=== PATIENT | female | born 1975 | race Two or more races ===

== ENCOUNTER → 2020-06-27 06:49 | Outpatient (BNVA) | payer OTHER, SELFPAY | PROVIDERS: PCP Internal Medicine; Referring Provider Internal Medicine; Visit Provider Surgery | DX: Z76.89 Persons encountering health services in other specified circumstances (principal) ==

== ENCOUNTER → 2020-06-28 08:13 | Outpatient (BNVA) | payer OTHER, SELFPAY | PROVIDERS: PCP Internal Medicine; Referring Provider Internal Medicine; Visit Provider Surgery | DX: Z76.89 Persons encountering health services in other specified circumstances (principal) ==

== ENCOUNTER → 2020-06-30 14:01 | Outpatient (BNVA) | payer OTHER, SELFPAY | PROVIDERS: PCP Internal Medicine; Visit Provider Dietitian, Registered | DX: Z76.89 Persons encountering health services in other specified circumstances (principal) ==

== ENCOUNTER → 2020-07-19 13:35 | Outpatient (BNVA) | payer OTHER, SELFPAY | PROVIDERS: PCP Internal Medicine; Visit Provider Surgery | DX: Z76.89 Persons encountering health services in other specified circumstances (principal) ==

== ENCOUNTER → 2020-07-20 13:09 | Outpatient (BNVA) | payer OTHER, SELFPAY | PROVIDERS: PCP Internal Medicine; Visit Provider Dietitian, Registered | DX: Z76.89 Persons encountering health services in other specified circumstances (principal) ==

== ENCOUNTER → 2020-07-31 08:57 | Outpatient (BNVA) | payer OTHER, SELFPAY | PROVIDERS: PCP Internal Medicine; Visit Provider Surgery | DX: Z76.89 Persons encountering health services in other specified circumstances (principal) ==

== ENCOUNTER → 2020-08-01 14:58 | Outpatient (BNVA) | payer OTHER, SELFPAY | PROVIDERS: Visit Provider Physician Assistant | DX: Z76.89 Persons encountering health services in other specified circumstances (principal) ==

== ENCOUNTER → 2020-09-20 08:35 | Outpatient (BNVA) | payer OTHER, SELFPAY | PROVIDERS: PCP Internal Medicine; Visit Provider Surgery | DX: Z76.89 Persons encountering health services in other specified circumstances (principal) ==

== ENCOUNTER 2020-09-29 13:37 | Outpatient (REF) | payer OTHER, SELFPAY ==
[2020-09-29 14:45] LABS: MANUAL DIFF FLAG NO
[2020-09-29 14:51] LABS: Basophils Percent Auto 0.3 % (0-2); Eosinophils Percent Auto 0.6 % (0-4); Hematocrit 38.6 % (37-47); Hemoglobin 12.2 g/dl (12.0-16.0); Imm Gran Abs Auto 0.03 X10*3/uL (0.00-0.03); Imm Gran Pct Auto 0.5 % (0.0-0.4); Lymphocytes Absolute Auto 1.7 X10*3/uL (1.2-4.9); Lymphocytes Percent Auto 26.6 % (20-40); Mean Corpuscular HGB Conc 31.6 g/dl (31.0-35.0); Mean Corpuscular Hemoglobin 26.7 pg (27.0-33.0); Mean Corpuscular Volume 84.5 fL (80-98); Mean Platelet Volume 9.6 fL (9.4-12.3); Monocytes Absolute Auto 0.4 X10*3/uL (0.1-1.2); Monocytes Percent Auto 5.5 % (2-11); Neutrophils Absolute Auto 4.2 X10*3/uL (2.0-8.3); Neutrophils Percent Auto 66.5 % (45-73); Platelet Count 288 X10*3/uL (160-400); Red Blood Count 4.57 X10*6/uL (4.20-5.50); Red Cell Distribution Width 12.9 % (11.0-16.0); White Blood Count 6.3 X10*3/uL (4.8-10.8)
[2020-09-29 14:53] LABS: INTERNATIONAL NORM RATIO 1.1 (0.9-1.1); Prothrombin Time 12.6 SEC (10.8-13.0)
[2020-09-29 14:56] LABS: Partial Thromboplastin Time 35.3 SEC (24.1-38.0)
[2020-09-29 15:03] LABS: Estimated Average Glucose 103 mg/dL; Hemoglobin A1c % 5.2 %
[2020-09-29 15:05] LABS: Alanine Aminotransferase 13 U/L (0-31); Albumin Level 4.3 g/dL (3.5-5.0); Alkaline Phosphatase 60 U/L (39-117); Anion Gap 11 (12-20); Aspartate Amino Transferase 16 U/L (5-31); Bilirubin Total 0.2 mg/dL (0.0-1.0); Blood Urea Nitrogen 14 mg/dL (9-16); C Reactive Protein 0.31 mg/dL (< or = 0.50); Calcium 9.2 mg/dL (8.4-10.2); Carbon Dioxide 28 mmol/L (22-29); Chloride 106 mmol/L (96-108); Cholesterol 209 mg/dL; Estimated Glomerular Filt Rate > 60; Glucose Random 90 mg/dL (60-115); HDL Cholesterol 66 mg/dL; LDL Cholesterol Calculated 126 mg/dl; Potassium 4.6 mmol/l (3.3-5.1); Sodium 140 mmol/L (135-145); Total Protein 6.7 g/dL (6.5-8.0); Triglycerides 89 mg/dL
[2020-09-29 15:25] LABS: TSH reflex Free T4 0.67 mIU/mL (0.32-4.0)
--- NOTE | 2020-09-29 15:30 | ECG_ITS ---
Test Reason : PRE-OP Blood Pressure : / mmHG Vent. Rate : 063 BPM Atrial Rate : 063 BPM P-R Int : 138 ms QRS Dur : 076 ms QT Int : 430 ms P-R-T Axes : 060 014 065 degrees QTc Int : 440 ms Normal sinus rhythm with sinus arrhythmia Low voltage QRS Borderline ECG No previous ECGs available Referred By: Nikhil Steel Electronically Signed By:Jordy Sol
--- NOTE | 2020-09-29 15:42 | XR_ITS ---
EXAMINATION: XR CHEST CLINICAL INFORMATION: Gastroesophageal reflux disease COMPARISON: None TECHNIQUE: 2 views of the chest were obtained. FINDINGS: The cardiac and mediastinal contours are normal. The lungs are clear. There is no pleural effusion or pneumothorax. There are degenerative changes of the spine. XR/XR chest 2V IMPRESSION: No evidence for acute disease in the chest.
== END 2020-09-29 13:38 | disposition home or self-care (01) ==
LOC: HO.LAB 13:37
PROVIDERS: PCP Internal Medicine; Visit Provider Surgery
DX: Z01.818 Encounter for other preprocedural examination (principal); E66.9 Obesity, unspecified; Z68.37 Body mass index [BMI] 37.0-37.9, adult; K21.9 Gastro-esophageal reflux disease without esophagitis; I10 Essential (primary) hypertension; G47.30 Sleep apnea, unspecified; K74.00 Hepatic fibrosis, unspecified
CPT/HCPCS: 36415; 71046; 80053; 80061; 83036; 83525; 84443; 85025; 85610; 85730; 86140; 93005

== ENCOUNTER 2020-10-19 06:55 | Inpatient (IN) | payer OTHER, SELFPAY ==
[2020-09-29 09:10] VITALS: BMI 37.3
--- NOTE | 2020-10-18 09:37 | HO.ANESPROP2 ---
Documented by User: Linda Gomez 10/18/20 09:46 HPI - Anesthesia Eval Consult details Narrative: 44yo F for Gastric Sleeve to Bypass Conversion h/o uvulectomy s/p gastric sleeve 2016 [facility] Past Medical History Medical History ADHD GERD (gastroesophageal reflux disease) History of depression Hypertension Obesity Sleep apnea Steatosis, liver Family History Family History Father HTN (hypertension) DM (diabetes mellitus) Mother Breast cancer HTN (hypertension) DM (diabetes mellitus) Brother No problems noted. Son No problems noted. Son No problems noted. Daughter No problems noted. Surgical History Surgical History H/O partial adrenalectomy H/O uvulectomy History of esophagogastroduodenoscopy (EGD) History of sleeve gastrectomy Hx laparoscopic cholecystectomy Hx of section Hx of tonsillectomy Social History Social History Are you a primary primary care coordinator to a significant other at home: No Do you presently have visiting nurse or other home services: No Alcohol intake: never Smoking Status: Never smoker Second Hand Smoke Exposure: No Use of substances other than those prescribed or required for medical reasons: No Have you been hit, kicked, punched, or otherwise hurt by someone within the past year? If so, by whom?: No Advance Directives: No Advance Directives Information Provided: No Advance Directives on File: No Recently lost weight without trying: No Meds Allergies Allergy/AdvReac Type Severity Reaction Status Date / Time No Known Allergies Allergy Verified 10/19/20 06:21 Home Medications Medication Instructions Recorded Confirmed Type citalopram 40 mg tablet 40 mg PO DAILY 07/19/20 09/29/20 History dextroamphetamine-amphetamine 20 20 mg PO TID 07/19/20 09/29/20 History mg tablet esomeprazole magnesium [Nexium 1 tab PO QAM 08/10/20 09/29/20 History 24HR] trazodone 1 - 2 tab PO BEDTIME PRN 08/10/20 09/29/20 History lorazepam 0.5 mg tablet 0.5 mg PO BEDTIME PRN 09/20/20 09/29/20 History Exam Exam Date and Time: October 18, 2020 0937 Height,Weight and Vital Signs: Height 5 ft 3 in Weight 95.708 kg Pertinent Lab Results Pertinent Lab Results: Laboratory Tests 09/29/20 13:41 Blood Type O Positive Antibody Screen POSITIVE Antibody Identification Anti-S Laboratory Tests 09/29/20 09/29/20 09/29/20 13:50 13:50 13:50 WBC 6.3 Hgb 12.2 Hct 38.6 Plt Count 288 PT 12.6 INR 1.1 APTT 35.3 Sodium 140 Potassium 4.6 Chloride 106 Carbon Dioxide 28 BUN 14 Creatinine 0.74 Hemoglobin A1c % Total Bilirubin 0.2 AST 16 ALT 13 Alkaline Phosphatase 60 C-Reactive Protein 0.31 Total Protein 6.7 Albumin 4.3 TSH 0.67 09/29/20 13:50 WBC Hgb Hct Plt Count PT INR APTT Sodium Potassium Chloride Carbon Dioxide BUN Creatinine Hemoglobin A1c % 5.2 Total Bilirubin AST ALT Alkaline Phosphatase C-Reactive Protein Total Protein Albumin TSH Narrative Narrative: EKG 09/29/20 Normal sinus rhythm with sinus arrhythmia Low voltage QRS Borderline ECG No previous ECGs available ECHO 03/2020 Nml study CXR 09/29/20 XR chest 2V IMPRESSION: No evidence for acute disease in the chest. Assessment and Plan Assessment Anesthesia Assessment: Chart Reviewed Documented by User: Lv Murphy 10/19/20 09:47 [facility] Past Medical History Medical History ADHD GERD (gastroesophageal reflux disease) History of depression Hypertension Obesity Sleep apnea Steatosis, liver Family History Family History Father HTN (hypertension) DM (diabetes mellitus) Mother Breast cancer HTN (hypertension) DM (diabetes mellitus) Brother No problems noted. Son No problems noted. Son No problems noted. Daughter No problems noted. Surgical History Surgical History H/O partial adrenalectomy H/O uvulectomy History of esophagogastroduodenoscopy (EGD) History of sleeve gastrectomy Hx laparoscopic cholecystectomy Hx of section Hx of tonsillectomy Social History Social History Are you a primary primary care coordinator to a significant other at home: No Do you presently have visiting nurse or other home services: No Alcohol intake: never Smoking Status: Never smoker Second Hand Smoke Exposure: No Use of substances other than those prescribed or required for medical reasons: No Have you been hit, kicked, punched, or otherwise hurt by someone within the past year? If so, by whom?: No Advance Directives: No Advance Directives Information Provided: No Advance Directives on File: No Recently lost weight without trying: No Meds Allergies Allergy/AdvReac Type Severity Reaction Status Date / Time No Known Allergies Allergy Verified 10/19/20 06:21 Home Medications Medication Instructions Recorded Confirmed Type citalopram 40 mg tablet 40 mg PO DAILY 07/19/20 09/29/20 History dextroamphetamine-amphetamine 20 20 mg PO TID 07/19/20 09/29/20 History mg tablet esomeprazole magnesium [Nexium 1 tab PO QAM 08/10/20 09/29/20 History 24HR] trazodone 1 - 2 tab PO BEDTIME PRN 08/10/20 09/29/20 History lorazepam 0.5 mg tablet 0.5 mg PO BEDTIME PRN 09/20/20 09/29/20 History Exam Airway Mallampati Class: II TM Dist: >3cm Neck ROM: Full Loose/Missing/Broken Teeth: No Heart: [id number] Lungs: Cta b/l Assessment and Plan Assessment Anesthesia Assessment: Anesthesia Plan Discussed, PAT Visit and Chart Reviewed Final Anesthetic Review NPO: Yes ASA Class: II Final Preanesthetic Review: No Changes in Pt Med Stat, Meds/Allgs Chart Reviewed, Consent Obtained/Reviewed and Anes Risks/Benef Reviewed Patient Risk: Low Procedure Risk: Low Assessment/Block/Sedation in SS: Assess/Block/Sedation-SS Anesthetic Plan Anesthetic Plan: GA and Agree w/ Assess. and Plan Disposition: Standard PACU
--- NOTE | 2020-10-18 20:42 | MHC.SHP ---
Pre-Procedural Eval Section A The patient is an INPATIENT: Yes The History & Physical has been completed within 30 days and I have reviewed it.: Yes Section B Chief Complaint: obesity Details of Present Illness: Obesity Relevant Family History (Specify if Yes): No Relevant Social History: None Present Medications: see Short Stay Collaborative assessment Medical History: No relevant PMH History of Previous Operations: Relevant previous surgery/procedure and date(s) (Sleeve gastrectomy) Allergies: Allergies Allergy/AdvReac Type Severity Reaction Status Date / Time No Known Allergies Allergy Unverified 09/28/20 10:38 Review of Systems Sugical H&P ROS: Negative: Constitution, Cardiovascular, Respiratory, Neurological, Psychiatric, Hem-Onc, Allergic/Immunologic, Gastrointestinal, Genitourinary, Musculoskeletal, Integumentary, Endocrine and Eyes/Ears/Nose/Throat Exam Surgical H&P Exam: Normal: HEENT, Normal: Heart, Normal: Lungs, Normal: Extremities, Normal: Abdomen, Normal: Skin and Normal: Neurological Plan Diagnosis/Plan: Unchanged I have reviewed the history and physical and performed a pertinent physical examination on my patient. No changes have occurred unless specified.
[2020-10-19] VITALS (11 sets, daily range): BP systolic 111–168; BP diastolic 78–99; PULSE 64–89; RESP 16–20; TEMP 36.4–37.1; O2SAT 97–100
[2020-10-19 06:50] LABS: UPreg QC Valid YES; Urine Pregnancy NEGATIVE (NEGATIVE)
[2020-10-19] MEDS: Lactated Ringers 1,000 ML 999 ML IVCONT (06:51)
[2020-10-19 06:56] LABS: COVID-19 Test Negative (Negative); IDNOW Serial# 9DD0AD1C
[2020-10-19] MEDS: ceFAZolin Sodium/Dextrose,Iso 2 GM/50 ML PIGGYBACK IV ×2 (07:09→14:01)
--- NOTE | 2020-10-19 13:17 | P.BOP_ITS ---
Brief Operative Note Date of Service: 10/19/20 Pre-op diagnosis: Severe obesity and comorbidities (see below) Post-op diagnosis: same (diaphragmatic hernia and adhesions) Procedure: INITIAL PATIENT BMI ON PRESENTATION AT OUR OFFICE: 40.85 Kg/m2 LAST BMI BEFORE SURGERY: 37.5 kg/m2 COMORBIDITIES: sleep apnea, severe GERD, hypertension, depression, diaphragmatic hernia, intra-abdominal adhesions, depression, ADHD, hyperlipidemia, back pain, liver steatosis, liver fibrosis The patient participated in an intensive weekly lifestyle intervention and exercise program during which the patient has lost between the initial office visit and the last preoperative visit 26lbs, or 10.92% of initial actual body weight. The patient met the BMI-criteria for bariatric surgery based on the BMI on initial presentation. The patient should not be penalized for achieving such weight loss because it is not sustainable long-term without surgical intervention and it was achieved in preparation for bariatric surgery under my direction and based on my published research ([email or web address] and [email or web address]/article/[email or web address]-[email or web address]/pdf) that a 10% preoperative weight loss improves long-term weight loss after surgery and reduces perioperative complications. Insurance carriers such as [facility] have endorsed my recommendations and have included in their policies criteria to include a 10% preoperative weight loss requirement. PROCEDURE: [id number], laparoscopic repair of incarcerated diaphragmatic hernia, extensive laparoscopic lysis of adhesions and laparoscopic Desean-en-Y gastric bypass with a Desean limb of 160cm INDICATIONS: This is a 44 year-old female with a BMI of 40.8 kg/m2, history of failed sleeve gastrectomy and associated comorbid conditions as described p reviously. After appropriate workup and a 26 lbs preoperative weight loss was performed, the patient was electively scheduled for laparoscopic, possibly open sleeve gastrectomy of the gastric pouch. The risks and complications of the procedure were discussed with the patient in advance, particularly the possibility of ; pulmonary embolism; staple line leak; bleeding; GERD; cardiac, pulmonary, or renal complications; as well as long-term problems such as insufficient weight loss, vitamin deficiency, strictures, or ulcers. The patient understood all the risks, and was in agreement to proceed with surgery. DESCRIPTION OF PROCEDURE: After informed consent was obtained from the patient, the patient was given preoperative antibiotics, and was transferred to the operating room. After successful induction of general anesthesia, a Echeverria catheter and pneumatic compressive devices were placed on both lower extremities. An upper endoscopy was performed next. The oropharynx and esophagus appeared to be within normal limits. There was a diaphragmatic hernia present of moderate size consistent with the findings of the preoperative upper GI. The stomach was entered. Then after all fluid and air were suctioned and the stomach was fully decompressed, the scope was withdrawn and secured in the mid esophagus. The patient was then prepped and draped in the usual sterile manner, and abdominal access was established at the right upper quadrant with the Cody technique. A 12 mm blunt port was inserted, and the abdomen was insufflated with CO2 to a pressure of 15 mmHg. Under direct visualization, additional ports were placed, specifically two 5 mm Versi-step ports to the left upper quadrant, and a 5 mm Versi-Step port to the right upper quadrant. 1% lidocaine plan was used to infiltrate all port sites as well as all fascia defects. An additional 5 mm and 12 mm Versi-step ports were placed just superior to the umbilicus to the left and the right of it. Following that, the patient was placed in a steep reverse Trendelenburg position. An additional 5 mm port was placed to the right flank for the Mediflex retractor that was used to retract the left lobe of the liver. Some omental fat overlying the sleeve was mobilized and the lesser sac was identified. I continued by dissecting between the gastric sleeve and the greater omentum all the way towards the angle of His. There were some posterior short gastric vessels that were not previously divided. Those were divided with the Thunderbeat. Separation of the gastric pouch from the spleen was difficult because of the severe fibrotic reaction from the use of Peristrips at the previous operation. Nevertheless, those were divided and that allowed exposure to the left edel The gastro-esophageal fat pad was opened with the ultrasonic device (Thunderbeat, Olympus) and the anterior esophagus and hiatus were exposed. The angle of His was opened with the ultrasonic device the fundus of the stomach from any diaphragmatic and splenic attachments. Adhesiolysis took approximately 90 min to complete. Dissection was very difficult and it was very tedious. There was an obvious significant-sized hiatal hernia. I continued dissecting along the hiatus toward the left edel and the angle of His. I fully mobilized the fat pad that was incarcerated in the hernia. I then continued by dissecting even further into the posterior retro-esophageal space all the way to the angle of His. I continued to mobilize the esophagus into the mediastinum circumferentially. Both vagal nerves were seen and preserved. At that point, I was able to have at least 3 to 5 cm of esophagus into the abdomen. After I completely mobilized the esophagus from both the left and right edel and I had a good mobilization of the esophagus circumferentially, I closed the hernia defect with two interrupted #0 Surgidac sutures using the Endo Stitch device, which were both placed posterior to the esophagus. There was no significant redundancy of the stomach laterally and posteriorly. The lesser omentum was divided with the Thunderbeat and the sleeve was transected transversely with one Endo BARBER-60 purple load using the AEON stapler. The staple line of the distal sleeve was reinforced with clips. The patient was then placed in supine position, and after I retracted the transverse colon and the omentum cephalad, we identified the ligament of Treitz. I counted 50 cm from the ligament of Treitz, and the small bowel and the mesentery were divided with an Endo BARBER-60 white load. Using the ultrasonic device, I opened the peritoneum at the root of the mesentery further to gain extra mobility. We then developed the mesocolic window slightly to the left and superior to the ligament of Treitz using the ultrasonic device. The apex of the Desean limb was identified. Following that, we grasped the apex of the Desean limb with an articulating bowel grasper, and after we made sure there was no twisting of the mesentery, it was delivered in a retrocolic, retrogastric fashion through the mesocolic window which we had previously made. Following that, I noted there was no tension between the gastric pouch and the Desean limb. Enterotomies were made at the apex of the pouch and the Desean limb, and the gastro-jejunostomy was made with an Endo BARBER-45 ma load (InnerWorkings) measured to be 4.5 cm in diameter. The enterotomy was closed using the Endo Stitch device in one layer of running 2-0 Polysorb suture in a [place] fashion starting from each corner of the enterotomy and tying the two ends together in the center of the enterotomy. The Desean limb was clamped with a bowel clampapproximately 15 cm from the gastro- jejunostomy, and a leak test was performed by submerging the anastomosis in saline and insufflating air off the scope into the pouch. The hiatal hernia repair was intact, and there was no narrowing of the GE junction. There was no air leak during the test. There was no significant ischemia of the mucosa of the gastric pouch or Desean limb. There was no bleeding from the suture or staple lines of the anastomosis, as well as the staple line of the gastric pouch which was clearly seen in its entirety. In addition, the anastomosis was patent, and we easily advanced the scope into the proximal Desean limb. With the scope pulled back at the esophagus, we reinforced the anastomosis circumferentially with multiple interrupted 2-0 Polysorb sutures in a Lembert type fashion using the Endo Stitch device. At that point, I pulled the endoscope back to the esophagus while we were decompressing the Desean limb and gastric pouch from any remaining air. At that point, the patient was placed in supine position, and after we reduced the Desean limb back into the abdomen, I counted 160 cm from the gastro-jejunostomy. An enterotomy was mad e there with the ultrasonic device. After a similar enterotomy was made at the apex of the bilio-pancreatic limb, the jejuno-jejunostomy was made with an Endo BARBER-60 white load. The enterotomy was closed with another Endo BARBER-60 white load after appropriate alignment with four interrupted 2-0 Surgidac sutures. Two anti-obstruction sutures were placed next between the staple line of the bilio-pancreatic limb and the mesentery of the Desaen limb distal from the anastomosis to prevent kinking of the anastomosis. We then closed the small bowel mesenteric defect in a running fashion using a running 2-0 Surgidac suture using the EndoStitch device. I checked the anastomosis at the end. The jejuno-jejunostomy was patent. The Desean limb was not narrowed. The staple lines were intact, viable, without evidence of any ischemia, bleeding, or any open areas, and the entire anastomosis was sitting nicely without tension, narrowing, or kinking. I then closed the Barton's defect with one interrupted 2-0 Surgidac suture in a U-type fashion and then the mesocolic defect with five interrupted 2-0 Sofsilk sutures in a U- type fashion. The Desean limb was clamped 20 cm inferior to the mesocolic window and another endoscopy was performed. We could easily pass the gastroscope through the gastro-jejunostomy and mesocolic window without any narrowing, kinking, or evidence of bleeding or ischemia. At that point the gastroscope was withdrawn from the patient?s mouth while we were decompressing the bowel and the stomach from any remaining air. I ran back the Desean limb from the mesocolic window to the jejuno-jejunostomy which appeared to be normal without any twisting or kinking. All blood clots were suctioned. I carefully positioned the transverse colon epiploic appendages to the root of the small bowel mesentery to prevent any adhesions between them and the anastomosis that could lead to an internal hernia. I then placed the patient back in a steep reverse Trendelenburg position. I looked into the lesser sac to see how the Desean limb was situating and it was situating well. There was no bleeding from the suture lines of the remnant, angle of His, and gastric pouch, as well as from the mesentery of the Desean limb. At this point I placed a 10 mm ONEAL drain underneath the gastro-jejunostomy and we secured the skin level with an #0 Sofsilk suture. The Mediflex retractor was removed, and the undersurface of the liver was inspected and there was no bleeding. The patient was placed in supine position. I closed the fascial defect of the 12 mm periumbilical port site laparoscopically with the EndoClose suture passer device using #1 Polysorb suture and the Cody port with a figure of eight #1 Polysorb suture. Then 100 cc 0.25 % Marcaine and 1% lidocaine plain were used to infiltrate both fascial closures as well as all skin incisions. At this point, the abdomen was deflated, all ports were removed under direct vision, and no bleeding was noted from any of the port sites. The skin incisions were irrigated with saline and were closed with 4-0 absorbable monofilament sutures. Steri-Strips and OpSites were used to cover all incisions. The patient was extubated and was transferred in stable condition to the recovery room for further care. I was present and performed all patel parts of the procedure. Ms. Snede was the first officer and flight instructor. There were no residents to assist with this case. Mihai Steel MD, PhD, FACS Surgeon: Nikhil Steel MD Anesthesia: GETA, local and other (TAP block) Incendiary Powder Mixer: Talia Sneed Estimated blood loss (mL): 20 IV fluids (mL): 1,800 Urine output (mL): 150 Pathology: none sent Condition: stable Disposition: PACU
--- NOTE | 2020-10-19 13:20 | P.DS_ITS ---
DS: Providers Provider Date of Service: 10/20/20 Date of admission: 10/19/20 06:55 Primary care physician: Caleb Palomares MD DS: Medications Discharge Medications Home Medications: Home Medications Medication Instructions Recorded Confirmed citalopram 40 mg tablet 40 mg PO DAILY 07/19/20 09/29/20 dextroamphetamine-amphetamine 20 20 mg PO TID 07/19/20 09/29/20 mg tablet esomeprazole magnesium [Nexium 1 tab PO QAM 08/10/20 09/29/20 24HR] trazodone 1 - 2 tab PO BEDTIME PRN 08/10/20 09/29/20 lorazepam 0.5 mg tablet 0.5 mg PO BEDTIME PRN 09/20/20 09/29/20 Previous Rx's Medication Instructions Recorded sucralfate 100 mg/mL oral 10 ml PO BID #420 ml 07/31/20 suspension ondansetron HCl 4 mg tablet 4 mg PO Q6H PRN #30 tab 09/28/20 polyethylene glycol 3350 17 gram 17 g PO DAILY #14 ea 09/28/20 oral powder packet DS: Summary Time Spent with Patient Time attestation: ADMITTING DIAGNOSIS: Refractory morbid obesity with a BMI of 37.4 kg/m2 after sleeve gastrectomy and associated co-morbid conditions including GERD, HTN, SHARI, depression and liver steatosis DISCHARGE DIAGNOSIS: same, with repair of hiatal hernia and conversion to zeenat - en -y gasric bypass Past surgical history: laparoscopic sleeve gastrectomy partail adrealectomy, uvulectomy, lap trevin section and tonsillectomy PROCEDURE: Qndnxxiu-pynsxp-ehrorimfrng and conversion from sleeve gastrectomy to laparoscopic Zeenat-en-Y gastric bypass, extensive lysis of adhesions and repair of hiatal hernia DISCHARGE SUMMARY: HISTORY OF PRESENT ILLNESS: The patient is a 44year-old woman with a BMI of 40.85 kg/m2 and associated co- morbidities as described previously. The patient had extensive preoperative work-up, lost 27 lbs preoperatively and was electively scheduled for laparo scopic, possible open conversion of LSG to gastric bypass and repair of hiatla hernia. Risks and complications of the surgery were discussed with the patient in advance, particularly the possibility of , pulmonary embolism, anastomotic leak, bleeding, bowel injury, GERD, cardiac, renal or pulmonary complications. The patient understood all the risks and was in agreement with the surgical plan. HOSPITAL COURSE: The patient underwent uneventful laparoscopic Zeenat-en-Y gastric bypass on the day of admission. Postoperatively, the patient was transferred to the surgical floor on a monitored bed and hemoglobin during the first 8 hours remained stable at 10.6 mg/dl. The patient was on IV Acetaminophen and dilaudid for pain control. On postoperative day one, the patient was feeling well without nausea, vomiting, fevers, or tachycardia. The patient had some mild incisional pain. The abdomen was soft. UGI showed no leak or obstruction. The patient was started on 1 ounce of water or ice every half hour. The Echeverria was discontinued. During the first day, the patient did fairly well, having some incisional pain, but able to ambulate adequately and to tolerate liquids well. Since the patient is doing well, we decided that the patient was ready to be discharged. The patient was given instructions to follow-up with me next week and to call my office for any fever over 101, persistent abdominal pain, nausea, vomiting, change in the color of the ONEAL fluid, symptoms of DVT such as calf tenderness, or leg swelling, or pulmonary embolism such as chest pain or shortness of breath. The patient was also instructed to drink 40-60 ounces of liquids per day using the 1-ounce cups. The patient was given prescription for Tylenol for pain, Zofran prn for nausea, pantoprazole and carafate. The patient was encouraged to ambulate and use the incentive spirometry. The patient was allowed to shower, but no baths, and encouraged to stay active at home. All of these instructions were given to the patient personally. All questions were answered and the patient understood all instructions. The instructions were given to the patient in print as well. Total time spent providing and/or coordinating discharge services: 30 Discharge coordination time: Less than 30 minutes Physical Exam Vital Signs: Vital Signs: Last Vital Signs Temp 98.2 F 10/19/20 13:07 Pulse 84 10/19/20 13:13 Resp 16 10/19/20 13:13 BP 127/88 10/19/20 13:13 Pulse Ox 100 10/19/20 13:13 Body Mass Index 37.3 DS: Data Data Completed and Pending Labs on day of discharge: Laboratory Tests 09/29/20 10/19/20 10/19/20 13:41 06:25 06:25 Urine Test COVID-19 ([facility]) Negative COVID-19 Clin Com See Note Blood Type O Positive O Positive Antibody Screen POSITIVE POSITIVE Antibody Identification Anti-S Anti-S Crossmatch ([facility]) See Detail 10/19/20 06:25 Urine Test NEGATIVE COVID-19 ([facility]) COVID-19 Clin Com Blood Type Antibody Screen Antibody Identification Crossmatch ([facility]G) Discharge Plan Discharge Anticipated Discharge Date/Time: 10/20/20 12:15 Patient Disposition: Home, Self-Care Referrals: Caleb Palomares MD [Primary Care Provider] - Discharge Medications: Continued ondansetron HCl [Zofran] 4 mg tablet 4 mg PO Q6H PRN (Reason: nausea and vomiting) Qty: 30 RF: 0 trazodone 50 mg tablet 1 - 2 tab PO BEDTIME PRN (Reason: Sleep) RF: 0 citalopram [Celexa] 40 mg tablet 40 mg PO DAILY RF: 0 dextroamphetamine-amphetamine [Adderall] 20 mg tablet 20 mg PO TID RF: 0 sucralfate 100 mg/mL suspension 10 ml PO BID Qty: 420 RF: 2 lorazepam [Ativan] 0.5 mg tablet 0.5 mg PO BEDTIME PRN (Reason: Anxiety) RF: 0 Discontinued polyethylene glycol 3350 [Miralax] 17 gram powder in packet 17 g PO DAILY Qty: 14 RF: 0 Nexium 24HR 20 mg tablet,delayed release (DR/EC) 1 tab PO QAM RF: 0 Diet: other Activity on Discharge: No heavy lifting Stand Alone Forms: Patient Portal Discharge page Activity Restrictions/Additional Instructions: No tub baths, sex or returning to work until discussed at first post op appointment. No exercise, alcohol, tobacco or illegal drug use. Continue to use incentive spirometer hourly while awake. Walk in home for 5- 10 minutes every 2 hours during the first week. Continue phase 1 diet today and start phase 2 diet tomorrow morning. Follow all instructions in the bariatric handbook and call with any questions. Visit Report Forms: Patient Portal Discharge page Care Plan Goals: weight loss Health Concerns: obesity Plan of Treatment: see discharge instructions
--- NOTE | 2020-10-19 13:34 | P.PNGS_ITS ---
Subjective Subjective Date of Service: 10/20/20 Interval history: Patient had mild incisional pain. She was able to ambulate and use the incentive spirometer. Physical Exam Vital Signs: Vital Signs: Last Vital Signs Temp 98.2 F 10/19/20 13:07 Pulse 85 10/19/20 13:18 Resp 16 10/19/20 13:18 BP 136/86 10/19/20 13:18 Pulse Ox 100 10/19/20 13:18 Body Mass Index 37.3 GI: Inspection: Yes normal to inspection, Yes incision (dry, clean and intact), Yes obesity and Yes other (ONEAL drain with serosanguinous fluid) Extrem: Right lower extremity: normal to inspection (no calf tenderness) Left lower extremity: normal to inspection (no calf tenderness) Progress Note: A&P Assessment and plan (1) Obesity: Status: Acute (2) GERD (gastroesophageal reflux disease): Status: Acute (3) Hypertension: Status: Acute (4) Sleep apnea: Problem details: Pt states no Longer on CPAP Status: Acute (5) Steatosis, liver: Status: Acute (6) Liver fibrosis: Status: Acute (7) BMI 37.0-37.9, adult: Status: Acute (8) Diaphragmatic hernia: Status: Acute (9) Abdominal adhesions: Status: Acute (10) S/P gastric bypass: Status: Acute Assessment and Plan: 44 year old female was admitted 10/19/2020 with morbid obesity and comorbiditi es. Problem 1: s/p laparoscopic diaphragmatic hernia repair, Desean-en-Y gastric bypass and lysis of adhesions Status: Doing well Plan: Check am labs and UGI. If OK, will start phase 1 bariatric diet and discharge later today. (11) S/P repair of paraesophageal hernia: Status: Acute (12) Depression: Status: Acute (13) Hyperlipidemia: Status: Acute (14) Back pain: Status: Acute (15) Splenic artery aneurysm: Status: Acute Fall Risk Details Current Medications: Current Medications Generic Name Dose Route Start Last Admin Trade Name Freq PRN Reason Stop Dose Admin Famotidine 20 mg 10/19/20 13:33 Famotidine/Pf 20 Mg/2 Ml Vial IVPUSH BID AMANUEL Fentanyl 50 mcg 10/19/20 09:47 Fentanyl Citrate/Pf 100 Mcg/2 Ml Vial IVPUSH Q5M PRN Pain, Moderate (Pain Scale 4-6 Hydromorphone HCl 0.5 mg 10/19/20 09:47 Hydromorphone Hcl 0.5 Mg/0.5 Ml Syringe IVPUSH Q5M PRN Pain, Severe (Pain Scale 7-10) Lactated Ringer's 1,000 mls @ 100 mls/hr 10/19/20 06:15 Lr IVCONT .Q10H AMANUEL Promethazine HCl 12.5 mg/ 50.5 mls @ 202 mls/hr 10/19/20 09:47 Sodium Chloride IV ONCE PRN Nausea and Vomiting Ondansetron HCl 4 mg 10/19/20 09:47 Ondansetron Hcl 4 Mg/2 Ml Vial IVPUSH ONCE PRN Nausea and Vomiting Oxycodone HCl 10 mg 10/19/20 09:47 Oxycodone Hcl Immed Release 5 Mg Tablet PO ONCE PRN Pain, Mild (Pain Scale 1-3) Time Spent With Patient Time: Total time spent is greater than 50% in coordination of care (as documented) at patient's floor/unit and/or counseling patient: Time with patient: less than 15 minutes
[2020-10-19] MEDS: Famotidine/PF 20 MG/2 ML VIAL IVPUSH ×2 (13:36→21:26)
[2020-10-19 13:48] LABS: Hematocrit 39.9 % (37-47); Hemoglobin 12.3 g/dl (12.0-16.0)
[2020-10-19 14:16] LABS: Anion Gap 16 (12-20); Blood Urea Nitrogen 13 mg/dL (9-16); Calcium 8.3 mg/dL (8.4-10.2); Carbon Dioxide 21 mmol/L (22-29); Chloride 109 mmol/L (96-108); Creatinine Clr Calc Pharmacy 99.5; Estimated Glomerular Filt Rate > 60; Glucose Random 134 mg/dL (60-115); Sodium 141 mmol/L (135-145)
[2020-10-19] MEDS: Lactated Ringers 1,000 ML 150 ML IVCONT (15:29)
[2020-10-19] MEDS: 0.9 % Sodium Chloride Flush 3 ML SYRINGE IVFLUSH (21:26)
[2020-10-19] MEDS: 0.9 % Sodium Chloride 1,000 ML 125 ML IVCONT (21:26)
[2020-10-19] MEDS: ondansetron HCL 4 MG/2 ML VIAL IVPUSH (22:42)
[2020-10-20] MEDS: Lactated Ringers 500 ML 999 ML IVCONT (00:58)
[2020-10-20 03:39] VITALS: BP 130/82; PULSE 65; RESP 18; TEMP 36.9; O2SAT 96
[2020-10-20] MEDS: 0.9 % Sodium Chloride 1,000 ML 125 ML IVCONT ×2 (04:24→08:08)
--- NOTE | 2020-10-20 04:27 | PC.NURSE ---
Addendum entered by Ailyn Benedict RN 10/20/20 04:47: Talia ordered 500 cc bolus of NS. bolus given. Original Note: pt's jones output from 3050-2241 was 75 ml of yellow urine, vital signs stable. [employer] message sent to SUSIE Steen. Talia ordered 500 cc bolus of LR. bolus given. pt's jones output about [id number] was 175 ml of yellow urine. [employer] message sent to SUSIE Steen. Talia aware.
[2020-10-20 04:53] LABS: MANUAL DIFF FLAG NO
[2020-10-20 04:57] LABS: Basophils Percent Auto 0.2 % (0-2); Eosinophils Percent Auto 0.2 % (0-4); Hematocrit 33.4 % (37-47); Hemoglobin 10.6 g/dl (12.0-16.0); Imm Gran Abs Auto 0.02 X10*3/uL (0.00-0.03); Imm Gran Pct Auto 0.2 % (0.0-0.4); Lymphocytes Absolute Auto 1.1 X10*3/uL (1.2-4.9); Lymphocytes Percent Auto 12.1 % (20-40); Mean Corpuscular HGB Conc 31.7 g/dl (31.0-35.0); Mean Corpuscular Hemoglobin 26.9 pg (27.0-33.0); Mean Corpuscular Volume 84.8 fL (80-98); Monocytes Absolute Auto 0.6 X10*3/uL (0.1-1.2); Monocytes Percent Auto 7.1 % (2-11); Neutrophils Percent Auto 80.2 % (45-73); Platelet Count 212 X10*3/uL (160-400); Red Blood Count 3.94 X10*6/uL (4.20-5.50); Red Cell Distribution Width 12.7 % (11.0-16.0); White Blood Count 8.8 X10*3/uL (4.8-10.8)
[2020-10-20 05:19] LABS: Anion Gap 14 (12-20); Blood Urea Nitrogen 11 mg/dL (9-16); Calcium 8.3 mg/dL (8.4-10.2); Carbon Dioxide 24 mmol/L (22-29); Chloride 108 mmol/L (96-108); Creatinine Clr Calc Pharmacy 107.5; Estimated Glomerular Filt Rate > 60; Glucose Random 105 mg/dL (60-115); Potassium 4.8 mmol/l (3.3-5.1); Sodium 141 mmol/L (135-145)
[2020-10-20] MEDS: 0.9 % Sodium Chloride 500 ML 999 ML IV (05:24)
[2020-10-20] MEDS: ondansetron HCL 4 MG/2 ML VIAL IVPUSH (06:36)
--- NOTE | 2020-10-20 07:54 | FL_ITS ---
EXAMINATION: UPPER GI CLINICAL INFORMATION: Postop gastric bypass COMPARISON: Preoperative exam February 2020 TECHNIQUE: Upper GI was performed patient in upright position dilute Gastrografin contrast. Fluoroscopy time 0.8 minutes. 48mGy. 16fluoroscopic images and one upright image. FINDINGS: There are postoperative changes from gastric bypass. No evidence for leak or obstruction. There is subsegmental atelectasis at the lung bases.. There is a small amount of free air. There are air-fluid levels seen in the small and large bowel probably representing an ileus. FL/FL upper GI w gastrografin IMPRESSION: No evidence of leak or obstruction. Probable postoperative ileus. Small amount of free air under the right diaphragm.
[2020-10-20 08:00] VITALS: BP 131/73; PULSE 72; RESP 19; TEMP 36.6; O2SAT 97
[2020-10-20] MEDS: Famotidine/PF 20 MG/2 ML VIAL IVPUSH (08:11)
--- NOTE | 2020-10-20 09:24 | HO.POSTANES ---
Post Anesthesia Evaluation Post Anesthesia Evaluation Vital Signs: Vital Signs Temp Pulse Resp BP Pulse Ox 10/20/20 08:00 97.9 F 72 19 131/73 97 10/20/20 03:39 98.4 F 65 18 130/82 96 10/19/20 23:35 98 F 64 18 127/87 97 Anesthesia: General Endotracheal-GETA Mental Status: Awake Pain Control: Satisfactory Nausea/Vomiting: None Hydration: Adequate Anesthesia-Related Issues: No Anes. Related Issues
--- NOTE | 2020-10-20 09:30 | MHC.CM.PN ---
PATIENT IS FULLY INDEPENDENT. NO DME OR [facility] SERVICES. SHE IS DISCHARGED HOME - SELF CARE. RN AWARE OF PLAN
[2020-10-20 09:47] VITALS: O2SAT 98
[2020-10-20 12:00] VITALS: BP 122/70; PULSE 69; RESP 18; TEMP 36.5; O2SAT 98
[2020-10-20] MEDS: ceFAZolin Sodium/Dextrose,Iso 2 GM/50 ML PIGGYBACK IV (13:23)
== END 2020-10-20 15:30 | disposition home or self-care (01) | DRG 403 ==
LOC: HO.SSSA 13:20 → HO.S3 14:11
PROVIDERS: Physician Assistant; Admitting Provider Surgery; PCP Internal Medicine; Visit Provider Surgery
PROC: 0D164ZA Bypass Stomach to Jejunum, Percutaneous Endoscopic Approach (ICD-10-PCS; principal; 2020-10-19 07:30)
DX: E66.01 Morbid (severe) obesity due to excess calories (principal); K74.00 Hepatic fibrosis, unspecified; K44.0 Diaphragmatic hernia with obstruction, without gangrene; E78.5 Hyperlipidemia, unspecified; K76.0 Fatty (change of) liver, not elsewhere classified; F32.9 Major depressive disorder, single episode, unspecified; G47.30 Sleep apnea, unspecified; Z68.41 Body mass index [BMI] 40.0-44.9, adult; K21.9 Gastro-esophageal reflux disease without esophagitis; I10 Essential (primary) hypertension; M54.9 Dorsalgia, unspecified; K66.0 Peritoneal adhesions (postprocedural) (postinfection); Z20.822 Contact with and (suspected) exposure to COVID-19; Z79.899 Other long term (current) drug therapy
CPT/HCPCS: 36415; 74240; 80048; 81025; 85014; 85018; 85025; 86850; 86870; 86885; 86900; 86901; 86902; 86920; 86922; 87635; 99024; C1758; J0131; J0690; J1100; J1170; J2250; J2405; J3010

== ENCOUNTER → 2020-10-25 10:52 | Outpatient (BNVA) | payer OTHER, SELFPAY | PROVIDERS: PCP Internal Medicine; Visit Provider Surgery ==

== ENCOUNTER → 2020-11-22 08:11 | Outpatient (BNVA) | payer OTHER, SELFPAY | PROVIDERS: PCP Internal Medicine; Visit Provider Surgery ==

== ENCOUNTER → 2020-12-15 08:13 | Outpatient (BNVA) | payer OTHER, SELFPAY | PROVIDERS: PCP Internal Medicine; Visit Provider Surgery ==

== ENCOUNTER → 2021-01-10 08:09 | Outpatient (BNVA) | payer OTHER, SELFPAY | PROVIDERS: PCP Internal Medicine; Visit Provider Surgery ==

== ENCOUNTER 2021-12-18 19:48 | Emergency (ER) | payer OTHER, SELFPAY ==
[2021-12-18 20:03] VITALS: BP 138/76; PULSE 75; RESP 18; TEMP 36.5; O2SAT 100; BMI 29.2
[2021-12-18 21:17] VITALS: BP 140/86; PULSE 78; RESP 18; TEMP 36.7; O2SAT 100
[2021-12-18] MEDS: Diphth,Pertus(ACell),Tet Adult 0.5 ML SYRINGE IM (22:09)
[2021-12-18] MEDS: Lidocaine HCl 1 % MPF 5 ML VIAL SUBCUT ×2 (22:09→22:10)
--- NOTE | 2021-12-18 22:17 | ED.WOUNDLAC ---
HPI - Wound/Laceration General Chief Complaint: Wound/Laceration Stated Complaint: needs stitches- cut finger at home Time Seen by Provider: 12/18/21 21:21 History of Present Illness HPI narrative: Patient complains of left index finger laceration from a kitchen knife on our ago at home, no numbness no weakness no tingling no other injury Related Data Home Medications Medication Instructions Recorded Confirmed citalopram 40 mg tablet (Celexa) 40 mg PO DAILY 07/19/20 09/29/20 dextroamphetamine-amphetamine 20 20 mg PO TID 07/19/20 09/29/20 mg tablet (Adderall) trazodone 50 mg tablet 1 - 2 tab PO BEDTIME PRN 08/10/20 09/29/20 lorazepam 0.5 mg tablet (Ativan) 0.5 mg PO BEDTIME PRN 09/20/20 09/29/20 Previous Rx's Medication Instructions Recorded ondansetron HCl 4 mg tablet 4 mg PO Q6H PRN #30 tab 09/28/20 (Zofran) sucralfate 100 mg/mL oral 10 ml PO BID #420 ml 03/20/21 suspension Allergies Allergy/AdvReac Type Severity Reaction Status Date / Time No Known Allergies Allergy Verified 12/18/21 20:03 Review of Systems Review of Systems: Positive for left index finger laceration Negatives are no numbness no weakness no tingling no difficulty moving or bending the finger no difficulty straightening the finger no other injury or complaint Yes all other systems are reviewed and are negative PMFSH Past Medical History Source: nursing notes reviewed Medical History (Updated 12/18/21 @ 22:21 by SUSIE Lazo) ADHD Back pain BMI 37.0-37.9, adult Depression GERD (gastroesophageal reflux disease) History of depression Hyperlipidemia Hypertension Obesity Sleep apnea Splenic artery aneurysm Steatosis, liver Surgical History (Updated 10/19/20 @ 13:37 by Nikhil Steel MD) H/O partial adrenalectomy H/O uvulectomy History of esophagogastroduodenoscopy (EGD) History of sleeve gastrectomy Hx laparoscopic cholecystectomy Hx of section Hx of tonsillectomy Family History Family History Father HTN (hypertension) DM (diabetes mellitus) Mother Breast cancer HTN (hypertension) DM (diabetes mellitus) Brother No problems noted. Son No problems noted. Son No problems noted. Daughter No problems noted. Social History Social History Are you a primary college and career counselor to a significant other at home: No Do you presently have visiting nurse or other home services: No Alcohol intake: never Second Hand Smoke Exposure: No Advance Directives: No Advance Directives Information Provided: No Patient : No service: No Current occupational status: employed Physical Exam Vital Signs: Vital Signs: Last Vital Signs Temp 98.1 F 12/18/21 21:17 Pulse 78 12/18/21 21:17 Resp 18 12/18/21 21:17 BP 140/86 H 12/18/21 21:17 Pulse Ox 100 12/18/21 21:17 BMI result Body Mass Index 29.2 General appearance comfortable cooperative no acute distress Head is normocephalic atraumatic Neck is supple Respiratory no distress Left index finger has a palmar 1.5 cm subcutaneous laceration in the middle phalanx, there is full range of motion, there is no tear mint of tendon function, there is full extension and full flexion, sensation and motor are intact, neurovascular intact Other extremities normal Course Course Course Narrative: Procedure note 1.5 cm left index finger laceration Anesthesia was 5 cc of 1% lidocaine digital block Wound is cleansed and irrigated with normal saline no foreign body identified 45.0 sutures are placed and dressing applied , bleeding is controlled Discharge Plan Discharge Clinical Impression: Laceration of finger Qualifiers: Encounter type: initial encounter Finger: index finger Laterality: left Patient Disposition: Home, Self-Care Additional Instructions: Cut was closed with stitches Stitches need to come out in 7 days Return any time for redness swelling pain any sign of infection You got a tetanus shot today Prescriptions: No Action ondansetron HCl [Zofran] 4 mg tablet 4 mg PO Q6H PRN (Reason: nausea and vomiting) Qty: 30 0RF sucralfate 100 mg/mL suspension 10 ml PO BID Qty: 420 1RF trazodone 50 mg tablet 1 - 2 tab PO BEDTIME PRN (Reason: Sleep) 0RF citalopram [Celexa] 40 mg tablet 40 mg PO DAILY 0RF dextroamphetamine-amphetamine [Adderall] 20 mg tablet 20 mg PO TID 0RF Rx Instructions: administer doses at least 4-6 hours apart lorazepam [Ativan] 0.5 mg tablet 0.5 mg PO BEDTIME PRN (Reason: Anxiety) 0RF
== END 2021-12-18 23:13 | disposition home or self-care (01) ==
PROVIDERS: Emergency Provider Emergency Medicine
DX: S61.211A Laceration without foreign body of left index finger without damage to nail, initial encounter (principal); S60.512A Abrasion of left hand, initial encounter; W26.0XXA Contact with knife, initial encounter; Y93.9 Activity, unspecified; Y92.009 Unspecified place in unspecified non-institutional (private) residence as the place of occurrence of the external cause; Y99.9 Unspecified external cause status; Z79.899 Other long term (current) drug therapy
CPT/HCPCS: 12001; 90471; 90715; 99283; 99284